=== PATIENT | female | born 1995 | race Caucasian/White ===

== ENCOUNTER 2023-02-02 01:29 | Emergency (ER) | payer MEDICAID ==
[~2023-02-02] VITALS: Ht 162.6 cm; Wt 65.8 kg
[2023-02-02 01:35] VITALS: BP 119/78; PULSE 109; RESP 16; TEMP 97.7; O2SAT 97
[2023-02-02 02:00] VITALS: BP 119/78; PULSE 109; RESP 16; TEMP 97.7; O2SAT 97
== END 2023-02-02 02:00 | disposition home or self-care (01) ==
LOC: MED 01:29
DX: R55 Syncope and collapse (principal); F10.129 Alcohol abuse with intoxication, unspecified
CPT/HCPCS: 99283